=== PATIENT | male | born 1970 ===

== ENCOUNTER 2024-11-12 08:27 | Day surgery (SDC) | payer OTHER ==
[2024-11-10 09:52] VITALS: BP 130/90
[2024-11-10 09:58] LABS: BASO % 1.2 % (0.1-1.2); EOS # 0.14 (0.04-0.54); EOS % 2.4 % (0.7-7.0); LYMPH # 2.03 (1.18-3.74); LYMPH % 34.5 % (19.3-53.1); MEAN PLATELET VOLUME 10.60 fl (9.4-12.4); MONO # 0.42 (0.24-0.82); MONO % 7.1 % (4.7-12.5); NEUT # 3.20 (1.56-6.13); NEUT % 54.3 % (34.0-71.1); RED CELL DISTRIBUTION WIDTH 12.5 % (11.6-14.4)
[2024-11-10 10:11] LABS: URINE APPEARANCE Clear; URINE BILIRRUBIN Negative (NEGATIVE); URINE BLOOD Negative; URINE COLOR Yellow; URINE GLUCOSE Negative (NEGATIVE); URINE KETONE Negative (NEGATIVE); URINE LEUKOCYTE Negative; URINE NITRATE Negative; URINE PROTEIN Negative (NEGATIVE); URINE UROBILINOGEN 0.2 E.U./dl
[2024-11-10 10:26] LABS: URINE BACTERIA 1.1 uL (0.0-1933); URINE CAST 0.00 uL (0.0-1.40); URINE EPITHELIAL CELLS 0.6 uL (0.0-38.8); URINE RBC 1.3 uL (0.0-20.8); URINE WBC 0.7 uL (0.0-23.2)
[2024-11-10 10:33] LABS: INR 0.94
[2024-11-10 10:57] LABS: ALT/SGPT 40.0 U/L (12-78); AST/SGOT 17.0 U/L (15-37); BILIRUBIN TOTAL 0.82 mg/dL (0.3-1.2); BUN CREA RATIO 17.0 (7.0-25.0); CREATININE SERUM 1.03 mg/dL (0.70-1.30); GFR 75.83; GLOBULINA 3.5 G/DL (2.4-3.5); GLUCOSE FASTING 102.0 mg/dL (65-100); OSMOLALITY SERUM 287.0 MOSM/KG (275-295)
[~2024-11-12] VITALS: Ht 180.3 cm; Wt 95.3 kg
[~2024-11-12 08:27] MED LIST: COZAAR50 MG PO; LIPITOR40 M1
[2024-11-12] MEDS ORDERED: KETOROLAC TROMETHAMINE 30 MG VIAL IV ONE (10:45)
[2024-11-12] MEDS ORDERED: CEFAZOLIN SODIUM 1,000 MG VIAL IV ONE (10:45)
[2024-11-12] MEDS ORDERED: KETOROLAC TROMETHAMINE 30 MG VIAL IM ONE (10:45)
[2024-11-12] MEDS ORDERED: MORPHINE SULFATE 4 MG/ML VIAL IV ONE (12:25)
== END 2024-11-12 14:10 | disposition home or self-care (01) ==
LOC: CIR.AMB 08:27
PROVIDERS: ATTEND Orthopaedic Surgery
DX: S46.211A Strain of muscle, fascia and tendon of other parts of biceps, right arm, initial encounter (principal)